=== PATIENT | female | born 1955 | race African-American/Black ===

== ENCOUNTER → 2018-07-08 | Outpatient (CLI) | payer BC ==
[~2018-07-08] MED LIST: AMLODIPINE BESY10 MG; HYDROCHLOROTHIA25 M1; LISINOPRIL20 MG PO; LISINOPRIL40 MG
== END ==
LOC: M.ULTRA 09:50
DX: I15.0 Renovascular hypertension (principal); I10 Essential (primary) hypertension

== ENCOUNTER → 2018-07-12 | Outpatient (CLI) | payer OTHER | LOC: M.CT 10:35 | DX: Z13.6 Encounter for screening for cardiovascular disorders (principal) ==

== ENCOUNTER → 2018-07-21 | Outpatient (CLI) | payer BC ==
[2018-07-21 13:40] LABS: ALBUMIN 3.7 g/dL (3.4-5.0); CALCIUM 9.6 mg/dL (8.5-10.1); CREATININE 0.7 mg/dL (0.6-1.3); TOTAL BILIRUBIN 0.4 mg/dL (<0.1-1.0); TOTAL PROTEIN 8.2 g/dL (6.4-8.2)
[2018-07-21 14:04] LABS: POTASSIUM 2.9 mmol/L (3.5-5.1)
== END ==
LOC: M.LAB 12:59 → M.CT 14:00 → M.LAB 07-29 13:00 → M.CT 07-29 14:00
PROVIDERS: Family Medicine
DX: I11.9 Hypertensive heart disease without heart failure (principal); I70.1 Atherosclerosis of renal artery; I74.09 Other arterial embolism and thrombosis of abdominal aorta; Z88.8 Allergy status to other drugs, medicaments and biological substances